=== PATIENT | male | born 1965 | race Caucasian/White ===

== ENCOUNTER 2017-01-27 15:24 | Emergency (ER) | payer MEDICAID ==
[~2017-01-27] VITALS: Ht 170.2 cm; Wt 69.0 kg
[~2017-01-27 15:24] MED LIST: CLOP75TA22 PO; HYDR12.53 PO; HYDR12.58 PO; HYDR1TAB12 PO; OXYC-302 PO
[2017-01-27] MEDS ORDERED: HYDROcodone/APAP 10/325 MG TABLET PO STA (17:17)
[2017-01-27] MEDS ORDERED: HYDROcodone/APAP 10/325 MG TABLET ONE (17:40)
[2017-01-27 18:41] VITALS: BP 151/94
== END 2017-01-27 19:00 ==
LOC: ED 18:50
DX: S72.142A Displaced intertrochanteric fracture of left femur, initial encounter for closed fracture (principal); I10 Essential (primary) hypertension; W18.49XA Other slipping, tripping and stumbling without falling, initial encounter; Y93.89 Activity, other specified; Y92.89 Other specified places as the place of occurrence of the external cause; Y99.8 Other external cause status
CPT/HCPCS: 99284

== ENCOUNTER 2017-01-31 20:13 | Emergency (ER) | payer MEDICAID ==
[~2017-01-31] VITALS: Ht 170.2 cm; Wt 70.5 kg
[2017-01-31] MEDS ORDERED: KETOROLAC 30 MG/1 ML ONE ×2 (20:34→20:53)
[2017-01-31] MEDS ORDERED: IBUPROFEN 200 MG TABLET ONE (20:46)
[2017-01-31] MEDS ORDERED: IBUPROFEN 200 MG TABLET PO ONE (21:00)
[2017-01-31] MEDS ORDERED: KETOROLAC 30 MG/1 ML IM ONE ×2 (21:00)
[2017-01-31 21:56] VITALS: BP 162/98
== END 2017-01-31 22:45 | disposition home or self-care (01) ==
LOC: ED 22:39
DX: S72.102A Unspecified trochanteric fracture of left femur, initial encounter for closed fracture (principal); S93.492A Sprain of other ligament of left ankle, initial encounter; X50.1XXA Overexertion from prolonged static or awkward postures, initial encounter; Y93.89 Activity, other specified; Y92.89 Other specified places as the place of occurrence of the external cause; Y99.8 Other external cause status
CPT/HCPCS: 73610; 96372; 99284; J1885

== ENCOUNTER 2017-10-23 15:12 | Emergency (ER) | payer MEDICAID ==
[~2017-10-23] VITALS: Ht 167.6 cm; Wt 75.6 kg
[~2017-10-23 15:12] MED LIST changes: -CLOP75TA22 PO; +CLOP75TA52 PO
[2017-10-23 17:47] LABS: ALBUMIN 3.4 g/dL (3.4-5.0); ANION GAP 8 mmol/L (5-15); CALCIUM 8.1 mg/dL (8.5-10.1); CHLORIDE 105 mmol/L (98-107); CREATININE 0.74 mg/dL (0.7-1.3)
[2017-10-23 17:53] LABS: BASOPHILS # (AUTO) 0.02 x10^3/uL (0-0.1); BASOPHILS % (AUTO) 0 % (0-1); EOSINOPHILS # (AUTO) 0.06 x10^3/uL (0-0.4); EOSINOPHILS % (AUTO) 1 % (1-7); LYMPHOCYTES # (AUTO) 1.16 x10^3/uL (1-3.4); LYMPHOCYTES % (AUTO) 18 % (22-44); MEAN CORPUSCULAR HEMOGLOBIN 32.2 pg (27.5-34.5); MEAN CORPUSCULAR HGB CONC 34.2 g/dL (33.2-36.2); MONOCYTES # (AUTO) 0.67 x10^3/uL (0.2-0.8); MONOCYTES % (AUTO) 10 % (2-9); NEUTROPHILS # (AUTO) 4.71 x10^3/uL (1.8-6.8); NEUTROPHILS % (AUTO) 71 % (42-75); PLATELET COUNT 151 x10^3/uL (130-400); RED BLOOD COUNT 4.72 x10^6/uL (4.38-5.82); RED CELL DISTRIBUTION WIDTH 13.6 % (9.4-14.8)
[2017-10-23 17:54] LABS: MD NO
[2017-10-23 17:56] VITALS: BP 151/82
== END 2017-10-23 18:32 | disposition home or self-care (01) ==
LOC: ED 18:00
DX: J06.9 Acute upper respiratory infection, unspecified (principal); I10 Essential (primary) hypertension
CPT/HCPCS: 36415; 71046; 80048; 82040; 85025; 93005; 99285

== ENCOUNTER 2019-02-28 13:59 | Emergency (ER) | payer MEDICAID ==
[~2019-02-28] VITALS: Ht 175.3 cm; Wt 69.4 kg
[~2019-02-28 13:59] MED LIST changes: +AMOX1TAB61 PO; +HYDR-3240 PO; +HYDR12.517 PO; -HYDR12.53 PO; -HYDR12.58 PO; -HYDR1TAB12 PO; +HYDR1TAB13 PO; +HYDROCHLOROTH12.5 MG PO
--- NOTE | 2019-02-28 14:30 | NUR ---
PT STATES HIS SURGERY WAS HERE ON 02/23. REPORTS R FOREARM FRACTURE. STILL C/O SIGNIFICANT R ARM PAIN AND LIMITED ROM TO R HAND, STATES HE'S OUT OF PAIN MEDS ([employer] ). R ARM SPLINT WITH DRIED BLOODY DRAINAGE AND VERY DIRTY. Addendum: 02/28/19 at 1444 by HBENSON PT STATES HE FINISHED HIS COURSE OF ABX.
--- NOTE | 2019-02-28 14:41 | NUR ---
ER PA WAS IN TO SEE PT. R ARM SPLINT REMOVED USING STERILE SALINE. WILL CLEAN AND RE-DRESS PER ER PA.
[2019-02-28] MEDS ORDERED: OXYcodone/APAP 5/325MG TABLET ONE (14:53)
[2019-02-28] MEDS ORDERED: OXYcodone/APAP 5/325MG TABLET PO ONE (15:00)
[2019-02-28] MEDS ORDERED: BACITRACIN OINT 500U/GM, 15 GM TP ONE (15:30)
[2019-02-28 15:40] VITALS: BP 156/101
--- NOTE | 2019-02-28 15:40 | NUR ---
ABX OINTMENT AND ADAPTIC APPLIED TO R FOREARM INCISIONS. R VOLAR SPLINT APPLIED BY SECONDS HANDLER, CMS INTACT. SLING PROVIDED. PT STATED PERCOCET WAS SOMEWHAT EFFECTIVE FOR R ARM PAIN. EXPLAINED THAT ERP UNABLE TO GIVE ANOTHER RX FOR NARCOTIC PAIN MEDS AT THIS TIME. PT UPSET BUT VERBALIZES UNDERSTANDING. D/C INSTRUCTIONS, MEDS & F/U APPT RV'WD WITH PT, HE VERBALIZES UNDERSTANDING. RX GIVEN X2. PT AMBULATED OUT OF ED WITHOUT DIFFICULTY.
== END 2019-02-28 15:44 | disposition home or self-care (01) ==
LOC: ED 15:19
DX: M79.631 Pain in right forearm (principal); I10 Essential (primary) hypertension; F17.200 Nicotine dependence, unspecified, uncomplicated
CPT/HCPCS: 29125; 99283

== ENCOUNTER 2019-03-05 23:45 | Emergency (ER) | payer MEDICAID ==
[~2019-03-05] VITALS: Ht 162.6 cm; Wt 71.5 kg
[2019-03-05 23:47] VITALS: BP 160/98
== END 2019-03-06 00:54 | disposition home or self-care (01) ==
LOC: ED 03-06 00:37
DX: S52.601A Unspecified fracture of lower end of right ulna, initial encounter for closed fracture (principal); F17.210 Nicotine dependence, cigarettes, uncomplicated; X58.XXXA Exposure to other specified factors, initial encounter; Y93.89 Activity, other specified; Y92.69 Other specified industrial and construction area as the place of occurrence of the external cause; Y99.8 Other external cause status
CPT/HCPCS: 29125; 99283

== ENCOUNTER 2019-03-12 18:00 | Emergency (ER) | payer MEDICAID ==
[~2019-03-12] VITALS: Ht 175.3 cm; Wt 67.4 kg
[2019-03-12 18:03] VITALS: BP 132/91
--- NOTE | 2019-03-12 18:30 | NUR ---
PT DEMANDING THAT PA TAKE OUT SUTURES THAT ORTHOPEDIC DOCTOR PLACED AND ALSO RE-SPLINT HIS ARM AFTER PT SELF-REMOVED PREVIOUS SPLINT FOR THE THIRD TIME. PA HAD PREVIOUSLY DISCUSSED IMPORTANCE OF WEARING SPLINT AND F/U WITH ORTHO AT LENGTH DURING PT'S PREVIOUS VISIT. WHEN PA ATTEMPTED TO REITERATE THE EDUCATION OF F/U WITH ORTHO FOR SUTURE REMOVED AND CASTING PT STATED "STOP BITCHING AT ME, FUCKING BITCH". PT THEN LEFT WITHOUT WAITING FOR TREATMENT OR PAPERWORK.
== END 2019-03-12 18:34 | disposition left against medical advice (07) ==
LOC: ED 18:28
DX: M79.89 Other specified soft tissue disorders (principal); I10 Essential (primary) hypertension; F17.200 Nicotine dependence, unspecified, uncomplicated; Z72.9 Problem related to lifestyle, unspecified
CPT/HCPCS: 99281

== ENCOUNTER 2019-08-27 13:14 | Emergency (ER) | payer MEDICAID ==
--- NOTE | 2019-08-27 13:30 | NUR ---
PT SEEN LEAVING BY REGISTRATION.
--- NOTE | 2019-08-27 13:38 | NUR ---
CALLED FOR TRIAGE, NO ANSWER
--- NOTE | 2019-08-27 13:50 | NUR ---
CALLED FOR TRIAGE, NO ANSWER
--- NOTE | 2019-08-27 14:02 | NUR ---
CALLED FOR TRIAGE, NO ANSWER
== END 2019-08-27 14:04 | disposition left against medical advice (07) ==
LOC: ED 13:58
DX: R51 Headache (principal); Z53.21 Procedure and treatment not carried out due to patient leaving prior to being seen by health care provider

== ENCOUNTER 2020-03-13 21:11 | Emergency (ER) | payer MEDICAID ==
[~2020-03-13] VITALS: Ht 170.2 cm; Wt 68.6 kg
[2020-03-13] MEDS ORDERED: DIAZEPAM 5 MG TABLET PO ONE (21:30)
[2020-03-13] MEDS ORDERED: DIAZEPAM 5 MG TABLET ONE (21:35)
--- NOTE | 2020-03-13 21:38 | NUR ---
PT MEDICATED PER OCT. PT RESTING COMFORTABLY IN [facility] WITH CALL LIGHT WITHIN REACH. FLOR.
--- NOTE | 2020-03-13 22:00 | NUR ---
PT RESTING COMFORTABLY IN [facility] AT THIS TIME. PT PROVIDED WATER PER PT REQUEST. PT DENIES ANY NEEDS AT THIS TIME.
[2020-03-13 22:01] LABS: BASOPHILS # (AUTO) 0.02 x10^3/uL (0-0.1); BASOPHILS % (AUTO) 0 % (0-1); EOSINOPHILS # (AUTO) 0.09 x10^3/uL (0-0.4); EOSINOPHILS % (AUTO) 1 % (1-7); LYMPHOCYTES # (AUTO) 1.63 x10^3/uL (1-3.4); LYMPHOCYTES % (AUTO) 24 % (22-44); MD NO; MEAN CORPUSCULAR HEMOGLOBIN 33.5 pg (27.5-34.5); MEAN CORPUSCULAR HGB CONC 34.5 g/dL (33.2-36.2); MEAN CORPUSCULAR VOLUME 97.1 fL (81-97); MEAN PLATELET VOLUME 10.4 fL (7.4-10.4); MONOCYTES # (AUTO) 0.53 x10^3/uL (0.2-0.8); MONOCYTES % (AUTO) 8 % (2-9); NEUTROPHILS % (AUTO) 67 % (42-75); PLATELET COUNT 199 x10^3/uL (130-400); RED BLOOD COUNT 4.68 x10^6/uL (4.38-5.82); RED CELL DISTRIBUTION WIDTH 12.9 % (9.4-14.8)
[2020-03-13 22:10] LABS: ALBUMIN 3.5 g/dL (3.4-5.0); ANION GAP 9 mmol/L (5-15); CALCIUM 8.9 mg/dL (8.5-10.1); CHLORIDE 110 mmol/L (98-107)
[2020-03-13 22:13] LABS: ALANINE AMINOTRANSFERASE 77 U/L (12-78); ALKALINE PHOSPHATASE 84 U/L (45-117); CREATININE 0.89 mg/dL (0.7-1.3); TOTAL PROTEIN 7.5 g/dL (6.4-8.2)
[2020-03-13] MEDS ORDERED: MAGNESIUM CITRATE 300ML ORAL SOL ONE (22:41)
[2020-03-13] MEDS ORDERED: MAGNESIUM CITRATE 300ML ORAL SOL PO ONE (23:00)
--- NOTE | 2020-03-13 23:08 | NUR ---
PT D/C WITH D/C SUMMARY AND SCRIPTS. ALL QUESTIONS ANSWERED. PT AMBULATES TO REGISTRATION DESK WITH STEADY GAIT FOR D/C HOME. PT DENIES ANY OTHER NEEDS PERTAINING TO THIS VISIT.
[2020-03-13 23:10] VITALS: BP 139/78
== END 2020-03-13 23:11 | disposition home or self-care (01) ==
LOC: ED 22:21
DX: R10.84 Generalized abdominal pain (principal); K59.00 Constipation, unspecified; F17.290 Nicotine dependence, other tobacco product, uncomplicated
CPT/HCPCS: 36415; 74021; 80053; 83690; 85025; 99284; 99406

== ENCOUNTER 2020-06-19 23:52 | Emergency (ER) | payer MEDICAID ==
[~2020-06-19] VITALS: Ht 170.2 cm; Wt 70.0 kg
[2020-06-20 00:06] VITALS: BP 171/111
== END 2020-06-20 00:44 | disposition home or self-care (01) ==
LOC: ED 06-20 00:13
DX: B85.0 Pediculosis due to Pediculus humanus capitis (principal); F17.210 Nicotine dependence, cigarettes, uncomplicated; I10 Essential (primary) hypertension; Z72.9 Problem related to lifestyle, unspecified; Z91.19 Patient's noncompliance with other medical treatment and regimen; Z59.0 Homelessness
CPT/HCPCS: 99282; 99283; 99406

== ENCOUNTER 2020-10-29 14:14 | Emergency (ER) | payer MEDICAID ==
[~2020-10-29] VITALS: Ht 172.7 cm; Wt 78.0 kg
[~2020-10-29 14:14] MED LIST changes: +HYDR-1067 PO; -HYDR-3240 PO; -OXYC-302 PO; +OXYC1TAB14 PO
[2020-10-29 14:18] VITALS: BP 159/110
[2020-10-29] MEDS ORDERED: IBUPROFEN 600 MG TABLET ONE (14:43)
[2020-10-29] MEDS ORDERED: IBUPROFEN 600 MG TABLET PO ONE (15:00)
== END 2020-10-29 15:44 | disposition home or self-care (01) ==
LOC: ED 15:30
DX: S70.01XA Contusion of right hip, initial encounter (principal); M25.521 Pain in right elbow; I10 Essential (primary) hypertension; X58.XXXA Exposure to other specified factors, initial encounter; Y93.89 Activity, other specified; Y92.89 Other specified places as the place of occurrence of the external cause; Y99.8 Other external cause status
CPT/HCPCS: 99283

== ENCOUNTER 2020-11-06 11:38 | Emergency (ER) | payer MEDICAID ==
[~2020-11-06] VITALS: Ht 170.2 cm; Wt 75.1 kg
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
--- NOTE | 2020-11-06 12:32 | NUR ---
PT MOVED TO A LEVEL 4 DUE TO NO TESTS BEING REQUIRED.
--- NOTE | 2020-11-06 12:42 | NUR ---
ORDERED BACTROBAN 2% OITMENT FROM PHARMACY.
[2020-11-06 12:58] VITALS: BP 178/107
[2020-11-06] MEDS ORDERED: MUPIROCIN OINT 2%, 22GM TP ONE (13:00)
== END 2020-11-06 13:12 | disposition home or self-care (01) ==
LOC: ED 13:00
DX: M25.551 Pain in right hip (principal); L01.01 Non-bullous impetigo; I10 Essential (primary) hypertension; F17.200 Nicotine dependence, unspecified, uncomplicated
CPT/HCPCS: 99283

== ENCOUNTER 2020-11-14 15:15 | Emergency (ER) | payer MEDICAID ==
[~2020-11-14] VITALS: Ht 170.2 cm; Wt 72.5 kg
[2020-11-14 15:36] VITALS: BP 153/97
--- NOTE | 2020-11-14 17:53 | NUR ---
TEST DESIGNER: NO ANSWER
--- NOTE | 2020-11-14 17:59 | NUR ---
DIRECTORY CARRIER: NOT LOBBY
--- NOTE | 2020-11-14 18:30 | NUR ---
JASON RN: CALLED PATIENT NO ANSWER
== END 2020-11-14 18:33 | disposition left against medical advice (07) ==
LOC: ED 16:00
DX: M25.551 Pain in right hip (principal); Z53.21 Procedure and treatment not carried out due to patient leaving prior to being seen by health care provider

== ENCOUNTER 2020-11-16 03:51 | Emergency (ER) | payer MEDICAID ==
[~2020-11-16] VITALS: Ht 170.2 cm; Wt 75.3 kg
[2020-11-16 04:00] VITALS: BP 191/125
--- NOTE | 2020-11-16 04:05 | NUR ---
PT REQ CRUTCHES AND SOMETHING FOR PAIN DOES NOT WANT ADDITIONAL IMAGING DONE AT THIS VISIT.
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
[2020-11-16] MEDS ORDERED: HYDROcodone/APAP 5/325 TABLET ONE (04:17)
--- NOTE | 2020-11-16 04:22 | NUR ---
PT PROVIDED CRUTCHES AND CRUTCH TRAINING. PT ABLE TO DEMONSTRATE PROPER USE. PT AMBULATORY WITH CRUTCH WALKING TO D/C DESK.
[2020-11-16] MEDS ORDERED: HYDROcodone/APAP 5/325 TABLET PO ONE (04:30)
== END 2020-11-16 04:35 | disposition home or self-care (01) ==
LOC: ED 04:21
DX: G89.29 Other chronic pain (principal); M25.551 Pain in right hip; L01.01 Non-bullous impetigo
CPT/HCPCS: 99283

== ENCOUNTER 2020-11-17 13:23 | Inpatient (IN) | payer MEDICAID ==
[~2020-11-17] VITALS: Ht 170.2 cm; Wt 75.0 kg
[2020-11-17 13:57] LABS: BASOPHILS % (AUTO) 0 % (0-1); EOSINOPHILS % (AUTO) 0 % (1-7); LYMPHOCYTES % (AUTO) 5 % (22-44); MEAN CORPUSCULAR HEMOGLOBIN 32.9 pg (27.5-34.5); MEAN CORPUSCULAR HGB CONC 34.5 g/dL (33.2-36.2); MEAN PLATELET VOLUME 9.6 fL (7.4-10.4); MONOCYTES % (AUTO) 6 % (2-9); NEUTROPHILS % (AUTO) 88 % (42-75); PLATELET COUNT 291 x10^3/uL (130-400); RED BLOOD COUNT 5.04 x10^6/uL (4.38-5.82); RED CELL DISTRIBUTION WIDTH 12.8 % (9.4-14.8)
[2020-11-17 14:06] LABS: ANION GAP 4 mmol/L (5-15); CALCIUM 9.4 mg/dL (8.5-10.1); CHLORIDE 105 mmol/L (98-107); CREATININE 0.94 mg/dL (0.7-1.3)
[2020-11-17 14:20] LABS: MD SCAN
--- NOTE | 2020-11-17 14:49 | NUR ---
bottle washer: pt from lobby to room 24
[2020-11-17] MEDS ORDERED: SODIUM CHLORIDE 0.9% 1,000ML IVBOLUS ONE (15:30)
[2020-11-17] MEDS ORDERED: SODIUM CHLORIDE FLUSH 10ML SYR IVF ONE (15:30)
[2020-11-17] MEDS ORDERED: ONDANSETRON 2MG/ML, 2ML IVPush ONE (15:30)
[2020-11-17] MEDS ORDERED: MORPHINE SULFATE 4 MG/ML, 1ML IVPush PRN (15:30)
[2020-11-17] MEDS ORDERED: ONDANSETRON 2MG/ML, 2ML ONE (15:58)
[2020-11-17] MEDS ORDERED: MORPHINE SULFATE 4 MG/ML, 1ML ONE (15:58)
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
--- NOTE | 2020-11-17 17:23 | NUR ---
pt requesting water. water given
[2020-11-17] MEDS ORDERED: CEFTRIAXONE PMX 2GM/50ML 50 ML IVPB ONE (17:30)
[2020-11-17] MEDS ORDERED: SODIUM CHLORIDE 0.9% 1,000 ML IV ONE (19:00)
[2020-11-17] MEDS ORDERED: SODIUM CHLORIDE FLUSH 10ML SYR IVF PRN (19:00)
[2020-11-17] MEDS ORDERED: CEFTRIAXONE PMX 2GM/50ML 50 ML ONE (19:19)
--- NOTE | 2020-11-17 19:25 | NUR ---
PT REQUESTING TO NOT HAVE BP TAKEN. BOTH ARMS ARE IN PAIN AND HE DOES NOT LIKE THE SQUEEZING.
--- NOTE | 2020-11-17 19:28 | NUR ---
ATTEMPT #1 FOR REPORT. PLACED ON HOLD, NO ANSWER
--- NOTE | 2020-11-17 19:36 | NUR ---
report given to velma hernandez
[2020-11-17 19:59] VITALS: BP 157/93
[2020-11-17] MEDS ORDERED: LIDOCAINE 1%, 10ML INFIL ONE (20:00)
[2020-11-17] MEDS ORDERED: LIDOCAINE-MPF 1%, 5ML ONE (20:08)
[2020-11-17] MEDS ORDERED: MELATONIN 5 MG TABLET PO PRN (20:30)
[2020-11-17] MEDS ORDERED: BISACODYL 10 MG SUPP PR PRN (20:30)
[2020-11-17] MEDS ORDERED: hydrALAzine 20 MG/ML, 1ML IVPush PRN (20:30)
[2020-11-17] MEDS ORDERED: POTASSIUM CHLORIDE 20 MEQ in LACTATED RINGERS 1,000 ML IV SCH (20:30)
[2020-11-17] MEDS ORDERED: ONDANSETRON ODT 4 MG PO PRN (20:30)
[2020-11-17] MEDS ORDERED: ACETAMINOPHEN 325 MG TABLET PO PRN (20:30)
[2020-11-17] MEDS ORDERED: VANCOMYCIN PER PHARMACY MC PRN (20:30)
[2020-11-17] MEDS ORDERED: PHARMACOKINETIC CONSULTATION MC ONE (21:00)
[2020-11-17] MEDS ORDERED: VANCOMYCIN 1,800 MG in SODIUM CHLORIDE 0.9% 250 ML IV ONE (21:00)
[2020-11-17] MEDS ORDERED: PHARMACOKINETIC MONITORING MC PRN (21:00)
[2020-11-17] MEDS: HYDROcodone/APAP 5/325 TABLET PO PRN (21:43)
[2020-11-17] MEDS: HEPARIN 5,000 UNITS/ML, 1ML SQ SCH (21:53)
[2020-11-17] MEDS: morphine SULFATE 10 MG/ML, 1ML IVPush PRN (22:36)
[2020-11-18 01:05] VITALS: BP 170/91
[2020-11-18] MEDS: HYDROcodone/APAP 5/325 TABLET PO PRN ×3 (01:51→10:37)
[2020-11-18] MEDS: morphine SULFATE 10 MG/ML, 1ML IVPush PRN ×3 (02:51→15:38)
[2020-11-18 05:39] LABS: BASOPHILS % (AUTO) 0 % (0-1); EOSINOPHILS % (AUTO) 0 % (1-7); LYMPHOCYTES % (AUTO) 9 % (22-44); MEAN CORPUSCULAR HEMOGLOBIN 32.5 pg (27.5-34.5); MEAN CORPUSCULAR HGB CONC 33.9 g/dL (33.2-36.2); MEAN PLATELET VOLUME 10.3 fL (7.4-10.4); MONOCYTES % (AUTO) 8 % (2-9); NEUTROPHILS % (AUTO) 82 % (42-75); PLATELET COUNT 253 x10^3/uL (130-400); RED BLOOD COUNT 4.42 x10^6/uL (4.38-5.82)
[2020-11-18 05:40] LABS: ALBUMIN 2.4 g/dL (3.4-5.0); ANION GAP 5 mmol/L (5-15); CALCIUM 8.6 mg/dL (8.5-10.1); CHLORIDE 107 mmol/L (98-107)
[2020-11-18 05:41] LABS: MD NO
[2020-11-18 05:42] LABS: ALANINE AMINOTRANSFERASE 37 U/L (12-78); ALKALINE PHOSPHATASE 94 U/L (45-117); BILIRUBIN,TOTAL 0.7 mg/dL (0.2-1.0); TOTAL PROTEIN 7.1 g/dL (6.4-8.2)
[2020-11-18] MEDS: HEPARIN 5,000 UNITS/ML, 1ML SQ SCH ×3 (05:54→15:02)
[2020-11-18 07:24] VITALS: BP 185/114
[2020-11-18 08:31] VITALS: BP 159/94
[2020-11-18] MEDS ORDERED: LOSARTAN 50MG TABLET PO SCH (09:30)
[2020-11-18] MEDS ORDERED: OMNIPAQUE 350 MG/ML, 100ML BOTTLE ONE (11:08)
[2020-11-18 12:08] VITALS: BP 146/92
[2020-11-18] MEDS ORDERED: VANCOMYCIN 1,500 MG in SODIUM CHLORIDE 0.9% 250 ML IV SCH (15:30)
== END 2020-11-18 17:36 | disposition left against medical advice (07) | DRG 872 ==
LOC: ED 15:27 → EDIP 19:20 → 3N 19:50
PROVIDERS: ADMIT Internal Medicine; ATTEND Family Medicine
PROC: 0H9GXZZ Drainage of Left Hand Skin, External Approach (ICD-10-PCS; principal; 2020-11-17)
DX: A41.9 Sepsis, unspecified organism (principal); L03.114 Cellulitis of left upper limb; G89.29 Other chronic pain; I10 Essential (primary) hypertension; Z53.29 Procedure and treatment not carried out because of patient's decision for other reasons; I16.0 Hypertensive urgency; M19.90 Unspecified osteoarthritis, unspecified site; Z79.899 Other long term (current) drug therapy
CPT/HCPCS: 36415; 80048; 80053; 82040; 83036; 83605; 83735; 84100; 85025; 87040; G0378; J0696; J1644; J2405; J3370; J3480; Q0162; Q9967; J0360; J2270; J7030; J7050; J7120

== ENCOUNTER 2021-01-12 09:36 | Emergency (ER) | payer MEDICAID ==
[~2021-01-12] VITALS: Ht 170.2 cm; Wt 73.2 kg
[~2021-01-12 09:36] MED LIST changes: -HYDR-1067 PO; +HYDR-2214 PO
[2021-01-12 09:38] VITALS: BP 170/104
--- NOTE | 2021-01-12 10:28 | NUR ---
military analyst: attempted to call pt from lobby to room, no answer
--- NOTE | 2021-01-12 10:31 | NUR ---
bug trimmer: attempted to call pt from lobby to room, no answer in lobby
--- NOTE | 2021-01-12 10:36 | NUR ---
bundle packer: attempted to call to room from lobby, no answer in lobby
== END 2021-01-12 10:35 | disposition left against medical advice (07) ==
LOC: ED 10:30
DX: M25.551 Pain in right hip (principal); Z53.21 Procedure and treatment not carried out due to patient leaving prior to being seen by health care provider

== ENCOUNTER 2021-01-25 07:28 | Emergency (ER) | payer MEDICAID ==
[~2021-01-25] VITALS: Ht 172.7 cm; Wt 70.8 kg
[2021-01-25] MEDS ORDERED: METHOCARBAMOL 750 MG TABLET PO ONE (08:00)
[2021-01-25] MEDS ORDERED: HYDROcodone/APAP 5/325 TABLET PO ONE (08:00)
--- NOTE | 2021-01-25 08:08 | NUR ---
PT TO XRAY, WILL MEDICATE UPON RETURN.
[2021-01-25] MEDS ORDERED: METHOCARBAMOL 750 MG TABLET ONE (08:26)
[2021-01-25] MEDS ORDERED: HYDROcodone/APAP 5/325 TABLET ONE (08:27)
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
[2021-01-25 09:41] VITALS: BP 155/104
--- NOTE | 2021-01-25 09:44 | NUR ---
Patient given discharge instructions and they have confirmed that they understand the instructions. Patient ambulatory with steady gait. No questions at time of discharge.
== END 2021-01-25 09:46 | disposition home or self-care (01) ==
LOC: ED 08:00
DX: S29.012A Strain of muscle and tendon of back wall of thorax, initial encounter (principal); I10 Essential (primary) hypertension; F17.210 Nicotine dependence, cigarettes, uncomplicated; Y04.8XXA Assault by other bodily force, initial encounter; Y93.89 Activity, other specified; Y92.89 Other specified places as the place of occurrence of the external cause; Y99.8 Other external cause status
CPT/HCPCS: 72072; 99284

== ENCOUNTER 2021-02-18 18:45 | Emergency (ER) | payer MEDICAID ==
--- NOTE | 2021-02-18 19:41 | NUR ---
NIL X2 AT THIS TIME
[2021-02-18] MEDS ORDERED: PROMETHAZINE 25 MG/ML, 1ML ONE (22:31)
[2021-02-18] MEDS ORDERED: MORPHINE SULFATE 4 MG/ML, 1ML ONE (22:31)
== END 2021-02-18 20:40 | disposition left against medical advice (07) ==
LOC: ED 19:00
DX: M54.5 Low back pain (principal); Z53.21 Procedure and treatment not carried out due to patient leaving prior to being seen by health care provider

== ENCOUNTER 2021-05-06 04:12 | Emergency (ER) | payer MEDICAID ==
[~2021-05-06] VITALS: Ht 172.7 cm; Wt 80.0 kg
[~2021-05-06 04:12] MED LIST changes: +OXYC1TAB12 PO; -OXYC1TAB14 PO
[2021-05-06 04:18] VITALS: BP 193/129
--- NOTE | 2021-05-06 04:21 | NUR ---
ATTEMPTED TO DO EKG IN TRIAGE DUE TO BP 193/129 BUT PATIENT REFUSED.
--- NOTE | 2021-05-06 05:14 | NUR ---
pt left, states "you are taking too long" and didnt want to wait
== END 2021-05-06 05:16 | disposition left against medical advice (07) ==
LOC: ED 04:59
DX: I95.9 Hypotension, unspecified (principal); Z53.21 Procedure and treatment not carried out due to patient leaving prior to being seen by health care provider